=== PATIENT | female | born 1950 | race Caucasian/White ===

== ENCOUNTER 2024-01-23 07:06 | Emergency (ER) | payer MEDICARE, OTHER ==
[~2024-01-23] VITALS: Ht 162.6 cm; Wt 84.0 kg
[2024-01-23 07:15] VITALS: O2SAT 100
[2024-01-23] MEDS: ACETAMINOPHEN 325MG TABLET PO ONE (07:53)
[2024-01-23] MEDS ORDERED: TOPUD PO (08:53)
[2024-01-23 08:56] VITALS: BP 118/78; PULSE 94; RESP 18; TEMP 98
== END 2024-01-23 09:30 | disposition home or self-care (01) ==
LOC: ER 07:06
DX: M25.561 Pain in right knee (principal); E78.00 Pure hypercholesterolemia, unspecified
CPT/HCPCS: 73560; 99283